=== PATIENT | female | born 1990 | race Two or more races ===

== ENCOUNTER 2023-11-29 16:30 | Inpatient (IN) | payer SELFPAY ==
[~2023-11-29] VITALS: Ht 175 cm; Wt 112.5 kg
[~2023-11-29 16:30] MED LIST: PREN-96 PO
[2023-11-29] MEDS ORDERED: BUTORPHANOL TARTRATE 2 MG/1 ML VIAL IV PRN ×2 (18:00)
[2023-11-29 18:30] LABS: Fern Testing Positive
[2023-11-29 19:36] LABS: Basophils # (auto) 0 10 ^3/uL (0-0.2); Basophils % (auto) 0.3 % (0.0-2.0); Eosinophils # (auto) 0 10 ^3/uL (0-0.8); Eosinophils % (auto) 0.3 % (0.0-7.0); Hematocrit 37.7 % (36.0-46.0); Hemoglobin 12.8 g/dL (12.2-16.2); Lymphocytes # (auto) 2.3 10 ^3/uL (0.4-5.4); Lymphocytes % (auto) 26.6 % (10.0-50.0); Mean Corpuscular Hemoglobin 32.6 pg (28.0-32.0); Mean Corpuscular Hgb Conc. 33.9 g/dL (32.0-36.0); Mean Corpuscular Volume 96.2 fL (80.0-100.0); Monocytes # (auto) 0.5 10 ^3/uL (0-1.3); Monocytes % (auto) 5.6 % (0.0-12.0); Neutrophils # (auto) 5.9 10 ^3/uL (1.6-8.6); Neutrophils % (auto) 67.2 % (37.0-80.0); Nucleated Red Blood Cells % 0.1 %; Red Blood Cells 3.92 10^6/uL (4.0-5.20); Red Cell Distribution Width 12.9 % (11.8-14.3); White Blood Cell 8.7 10^3/uL (4.4-10.8)
[2023-11-29] MEDS: LACTATED RINGER'S 1,000 ML IV SCH (19:38)
[2023-11-29] MEDS: PENICILLIN G POT 5MIL/D5 50ML 50 ML IV ONE (19:42)
[2023-11-29] MEDS: miSOPROStol 50 MCG per PRE-CUT 1/2 TAB PO PRN (19:45)
[2023-11-29 19:51] LABS: INR 0.97 (0.9-1.15); Partial Thromboplastin Time 28.2 SEC (24.5-34.5); Prothrombin Time 10.3 sec (9.3-11.8)
[2023-11-29 20:01] LABS: Albumin 3.9 g/dL (3.2-4.8); Alkaline Phosphatase 169 U/L (46-116); Anion Gap 9 (5-15); Aspartate Aminotransferase 12 U/L (13-40); Calcium 9.6 mg/dL (8.5-10.1); Carbon Dioxide 21 mmol/L (20-30); Chloride 106 mmol/L (98-107); Glucose 73 mg/dL (74-106); Potassium 3.7 mmol/L (3.5-5.1); Sodium 136 mmol/L (136-145)
[2023-11-29 20:02] LABS: Bilirubin, Total 0.4 mg/dL (0.2-1.0); Total Protein 6.6 g/dL (5.7-8.2)
[2023-11-29 20:10] LABS: Alanine Aminotransferase < 9 U/L (7-40); BUN/Creatinine Ratio 10.2 (10.0-20.0); Blood Urea Nitrogen < 5 mg/dL (9-23)
[2023-11-29 22:33] LABS: Urine Bacteria FEW /hpf (None Seen); Urine Blood 1+ /uL (Negative); Urine Clarity Clear (Clear); Urine Color Light-Yellow (Yellow); Urine Protein, UAD Negative (Negative); Urine Urobilinogen Normal (Negative); Urine WBC 1 /hpf (0 - 5); Urine pH 6.5 (5.0-9.0)
[2023-11-29 22:41] LABS: Amphetamine Screen, Urine Neg (NEGATIVE); Barbiturate Scree,Urine Neg (NEGATIVE); Benzodiazephine Screen, Urine Neg (NEGATIVE); Cannabinoid Screen, Urine Neg (NEGATIVE); Cocaine Screen, Urine Neg (NEGATIVE); Opiate Scree,Urine Neg (NEGATIVE); Phencyclidine Screen, Urine Neg (NEGATIVE)
[2023-11-29] MEDS: PENICILLIN G POTASSIUM 2,500,000 UNITS in D5W 5% 50 ML IV SCH (22:45)
[2023-11-30] MEDS: PENICILLIN G POT 5MILLION UNIT VIAL ONE (00:18)
[2023-11-30] MEDS: STERILE WATER 10 ML ONE (00:18)
[2023-11-30] MEDS: LACT. RINGERS/OXYTOCIN 20UNITS 1,000 ML IV ONE (01:33)
[2023-11-30] MEDS: DERMOPLAST 60ML BOTTLE TOP PRN (01:47)
[2023-11-30] MEDS: WITCH HAZEL-GLYCERIN PAD TOP PRN (01:47)
[2023-11-30] MEDS: PHISODERM TOP SOLN 240ML BTL TOP PRN (01:47)
[2023-11-30] MEDS: LIDOCAINE 2%HCL (LOCAL ANESTH.) INJ 20ML MDV IJ PRN (01:50)
[2023-11-30] MEDS: LACT. RINGERS/OXYTOCIN 20UNITS 500 ML IV ONE ×2 (03:32→03:33)
[2023-11-30 07:00] VITALS: BP 105/65; PULSE 65; RESP 16; TEMP 98.5; O2SAT 96
[2023-11-30 07:12] LABS: Basophils # (auto) 0 10 ^3/uL (0-0.2); Basophils % (auto) 0.2 % (0.0-2.0); Eosinophils # (auto) 0 10 ^3/uL (0-0.8); Eosinophils % (auto) 0.1 % (0.0-7.0); Hematocrit 36.4 % (36.0-46.0); Hemoglobin 12.7 g/dL (12.2-16.2); Lymphocytes # (auto) 1.7 10 ^3/uL (0.4-5.4); Lymphocytes % (auto) 12.2 % (10.0-50.0); Mean Corpuscular Hgb Conc. 34.9 g/dL (32.0-36.0); Mean Corpuscular Volume 94.5 fL (80.0-100.0); Monocytes # (auto) 0.5 10 ^3/uL (0-1.3); Monocytes % (auto) 3.7 % (0.0-12.0); Neutrophils # (auto) 11.7 10 ^3/uL (1.6-8.6); Neutrophils % (auto) 83.8 % (37.0-80.0); Nucleated Red Blood Cells % 0.1 %; Red Blood Cells 3.85 10^6/uL (4.0-5.20)
[2023-11-30] MEDS ORDERED: IBUPROFEN 600 MG TAB PO PRN (10:00)
[2023-11-30] MEDS ORDERED: ACETAMINOPHEN 325 MG TAB PO PRN (10:00)
[2023-11-30 11:00] VITALS: BP 90/50; PULSE 60; RESP 17; TEMP 98.7; O2SAT 98
[2023-11-30 15:00] VITALS: BP 94/55; PULSE 59; RESP 17; TEMP 98.6; O2SAT 98
[2023-11-30 19:30] VITALS: BP 118/58; PULSE 61; RESP 18; TEMP 97.8; O2SAT 98
[2023-11-30] MEDS: DOCUSATE SOD 100 MG CAP PO SCH (22:15)
[2023-11-30] MEDS ORDERED: DOCU-265 PO (22:56)
[2023-11-30] MEDS ORDERED: IBU600T PO (22:56)
[2023-11-30 23:00] VITALS: BP 116/66; PULSE 56; RESP 16; TEMP 97.8; O2SAT 96
[2023-12-01 03:00] VITALS: BP 95/50; PULSE 55; RESP 17; TEMP 98; O2SAT 95
[2023-12-01 07:00] VITALS: BP 97/53; PULSE 57; RESP 17; TEMP 98.2; O2SAT 97
[2023-12-01 07:06] LABS: RPR Non Reactive (Non Reactive)
[2023-12-01 10:06] LABS: Rubella Antibodies, IgG 2.33 index (Immune >0.99)
[2023-12-02 19:06] LABS: Treponema pallidum Ab (FTA-Ab) Non Reactive (Non Reactive)
== END 2023-12-01 11:50 | disposition home or self-care (01) | DRG 807 ==
LOC: LDRP 16:30 → UNDOADMOB 16:30 → OBSVTOIN 17:30 → INTOOBSV 17:30 → LDRP 17:36 → OBSVTOIN 17:57
PROVIDERS: ADMIT Obstetrics & Gynecology; ATTEND Obstetrics & Gynecology
PROC: 10E0XZZ Delivery of Products of Conception, External Approach (ICD-10-PCS; principal; 2023-11-30)
PROC: 0KQM0ZZ Repair Perineum Muscle, Open Approach (ICD-10-PCS; 2023-11-30)
PROC: 3E0DXGC Introduction of Other Therapeutic Substance into Mouth and Pharynx, External Approach (ICD-10-PCS; 2023-11-30)
DX: O69.81X0 Labor and delivery complicated by cord around neck, without compression, not applicable or unspecified (principal); Z37.0 Single live birth; O70.1 Second degree perineal laceration during delivery; Z3A.39 39 weeks gestation of pregnancy
CPT/HCPCS: 36415; 59025; 59409; 76805; 80053; 80307; 81001; 81002; 83036; 85025; 85610; 85730; 86592; 86703; 86762; 86850; 86900; 86901; 87340; 94760; 96360; 96361; 96365; 96366; G0378; J2540; J2590; J7060